=== PATIENT | female | born 1990 | race Hispanic/Latino ===

== ENCOUNTER 2018-08-05 20:29 | Emergency (ER) | payer BC ==
[~2018-08-05] VITALS: Ht 162.6 cm; Wt 90.4 kg
[2018-08-05] MEDS ORDERED: ACCUTANE PO (21:34)
[2018-08-05 21:53] LABS: URINE BILIRUBIN - DIPSTICK NEGATIVE (NEGATIVE); URINE BLOOD DIPSTICK NEGATIVE (NEGATIVE); URINE GLUCOSE - DIPSTICK NEGATIVE (NEGATIVE); URINE KETONE 15 mg/dL (NEGATIVE); URINE LEUK ESTERASE TRACE (Negative); URINE NITRITE - DIPSTICK POSITIVE (Negative); URINE PH 5.5 (4.5-8.0); URINE PROTEIN - DIPSTICK TRACE mg/dL (NEG-TRACE); URINE SPECIFIC GRAVITY 1.025
[2018-08-05 22:14] LABS: URINE CLARITY CLEAR
[2018-08-05 22:18] LABS: URINE COLOR ORANGE
[2018-08-05 22:23] LABS: URINE BACTERIA FEW hpf; URINE SQUAMOUS EPITHELIAL CELL FEW EPI/hpf (0-FEW)
[2018-08-05] MEDS ORDERED: KEFLEX500 M1 PO (22:23)
[2018-08-05 22:35] VITALS: BP 121/71
== END 2018-08-05 22:57 | disposition home or self-care (01) | DRG 690 ==
LOC: ED 20:29
PROVIDERS: Emergency Medicine
DX: N39.0 Urinary tract infection, site not specified (principal)

== ENCOUNTER 2019-02-17 21:45 | Emergency (ER) | payer BC ==
[~2019-02-17] VITALS: Ht 162.6 cm; Wt 91.0 kg
[~2019-02-17 21:45] MED LIST: ABSORICA40 MG PO; ACCUTANE PO; AMOXICILLIN875 MG PO; JUNEL 1.5/30 PO; KEFLEX500 M1 PO; PREDNISONE10 MG PO
[2019-02-18] MEDS ORDERED: AMOXICILLIN500 M2 PO (00:17)
[2019-02-18 00:35] VITALS: BP 142/91
== END 2019-02-18 00:35 | disposition home or self-care (01) | DRG 605 ==
LOC: ED 21:45
DX: S00.81XA Abrasion of other part of head, initial encounter (principal); J02.9 Acute pharyngitis, unspecified; Y00.XXXA Assault by blunt object, initial encounter; Y92.009 Unspecified place in unspecified non-institutional (private) residence as the place of occurrence of the external cause

== ENCOUNTER 2019-08-08 20:50 | Emergency (ER) | payer BC ==
[~2019-08-08 20:50] MED LIST changes: +AMOXICILLIN500 M2 PO
[2019-08-08 22:03] LABS: URINE BILIRUBIN - DIPSTICK NEGATIVE (NEGATIVE); URINE BLOOD DIPSTICK NEGATIVE (NEGATIVE); URINE COLOR YELLOW; URINE GLUCOSE - DIPSTICK NEGATIVE (NEGATIVE); URINE KETONE NEGATIVE (NEGATIVE); URINE LEUK ESTERASE TRACE (NEGATIVE); URINE NITRITE - DIPSTICK NEGATIVE (Negative); URINE PROTEIN - DIPSTICK NEGATIVE (NEG-TRACE); URINE SPECIFIC GRAVITY >=1.030
[2019-08-08 23:38] LABS: HEMATOCRIT 35.2 % (37.0-47.0); IMMATURE GRANULOCYTES 0.3 % (0.0-5.0); MEAN CELL VOLUME 76.4 fL CALC (80.0-100.0); MEAN CORPUSCULAR HGB 23.9 pG CALC (26.0-32.0); MEAN CORPUSCULAR HGB CONC 31.3 g/dL CAL (32.0-36.0); NEUT# 8.88 thou/uL (2.00-7.15); RED BLOOD COUNT 4.61 mill/uL (4.20-5.60); RED CELL DISTRI WIDTH 15.2 % (11.5-15.5)
[2019-08-08 23:59] LABS: ALBUMIN 3.9 g/dL (3.2-5.0); ALKALINE PHOSPHATASE 85 u/l (38-126); AMYLASE 31 u/l (30-110); ANION GAP 12 (6-22 (CALC)); BILIRUBIN, TOTAL 0.3 mg/dL (0.0-1.4); BUN 15 mg/dL (7-17); BUN/CREATININE RATIO 26 (12-20 (CALC)); CARBON DIOXIDE 25 mmol/l (22-30); CHLORIDE 103 mmol/l (95-108); CREATININE 0.6 mg/dL (0.5-1.0); GFR > 60 ML/MIN (>=60 (CALC)); GFR FOR AFR.AMER. > 60 ML/MIN (>=60 (CALC)); LIPASE 84 u/l (23-300); POTASSIUM 3.9 mmol/l (3.5-5.1); SGOT/AST 16 u/l (14-36); SODIUM 137 mmol/l (137-146); TOTAL PROTEIN 7.1 g/dL (6.3-8.2)
[2019-08-09] MEDS ORDERED: NAPROXEN500 MG PO (01:43)
[2019-08-09 01:45] VITALS: BP 122/60
== END 2019-08-09 01:52 | disposition home or self-care (01) | DRG 556 ==
LOC: ED 20:50
PROVIDERS: Emergency Medicine
DX: M79.18 Myalgia, other site (principal)
CPT/HCPCS: Q9967